=== PATIENT | female | born 1940 | race Caucasian/White ===

== ENCOUNTER → 2016-08-17 | Outpatient (CLI) | payer MEDICARE ==
[~2016-08-17] MED LIST: REGADENOSON 0.4 MG/5 ML SYRINGE ONE
== END | disposition home or self-care (01) ==
LOC: CFH 06:34
PROVIDERS: ATTEND Internal Medicine Cardiovascular Disease
DX: I08.3 Combined rheumatic disorders of mitral, aortic and tricuspid valves (principal); I10 Essential (primary) hypertension; R07.9 Chest pain, unspecified; I49.3 Ventricular premature depolarization
CPT/HCPCS: 78452; 93017; 93306; A9502; J2785

== ENCOUNTER → 2016-08-28 | Outpatient (CLI) | payer MEDICARE ==
[~2016-08-28] MED LIST changes: +OMNIPAQUE 350 MG/ML, 100ML BOTTLE ONE; -REGADENOSON 0.4 MG/5 ML SYRINGE ONE
== END | disposition home or self-care (01) ==
LOC: RAD 12:35
PROVIDERS: ATTEND Family Medicine
DX: K57.92 Diverticulitis of intestine, part unspecified, without perforation or abscess without bleeding (principal); K44.9 Diaphragmatic hernia without obstruction or gangrene; N94.89 Other specified conditions associated with female genital organs and menstrual cycle; I70.0 Atherosclerosis of aorta
CPT/HCPCS: 74177; Q9967

== ENCOUNTER → 2017-08-20 | Outpatient (CLI) | payer MEDICARE | END | disposition home or self-care (01) | LOC: RAD 11:31 | PROVIDERS: ATTEND Internal Medicine | DX: J06.9 Acute upper respiratory infection, unspecified (principal) | CPT/HCPCS: 71046 ==

== ENCOUNTER → 2017-10-24 | Outpatient (CLI) | payer MEDICARE ==
[~2017-10-24] MED LIST changes: +LIDOCAINE-MPF 1%, 2ML ONE; -OMNIPAQUE 350 MG/ML, 100ML BOTTLE ONE
== END | disposition home or self-care (01) ==
LOC: RAD 13:10
PROVIDERS: ATTEND Otolaryngology
DX: E04.2 Nontoxic multinodular goiter (principal)
CPT/HCPCS: 10022; 76942; 88112; 88172; 88173; J3490

== ENCOUNTER → 2018-04-08 | Outpatient (CLI) | payer MEDICARE | END | disposition home or self-care (01) | LOC: CFH 10:07 | PROVIDERS: ATTEND Otolaryngology | DX: E04.9 Nontoxic goiter, unspecified (principal) | CPT/HCPCS: 76536 ==

== ENCOUNTER 2018-06-06 08:34 | Outpatient (CLI) | payer MEDICARE ==
[2018-06-06] MEDS ORDERED: LIDOCAINE-MPF 1%, 5ML ONE (08:53)
== END 2018-06-06 23:59 | disposition home or self-care (01) ==
LOC: RAD 08:34
PROVIDERS: ATTEND Surgery
DX: D34 Benign neoplasm of thyroid gland (principal)
CPT/HCPCS: 10005; 76942; 88172; 88173

== ENCOUNTER → 2018-08-01 | Outpatient (CLI) | payer MEDICARE ==
[~2018-08-01] MED LIST changes: +COQ10 PO; +LEVO125T PO; -LIDOCAINE-MPF 1%, 2ML ONE; +LOSA100T14 PO; +PRAV20TA2 PO; +[UNRECOGNIZED DRUG - OTHER] PO
[2018-08-01 10:01] LABS: ALBUMIN 4.2 g/dL (3.4-5.0); ANION GAP 5 mmol/L (5-15); CALCIUM 9.6 mg/dL (8.5-10.1); CHLORIDE 107 mmol/L (98-107)
[2018-08-01 10:05] LABS: ALANINE AMINOTRANSFERASE 22 U/L (12-78); ALKALINE PHOSPHATASE 64 U/L (45-117); BILIRUBIN,TOTAL 0.6 mg/dL (0.2-1.0); CREATININE 0.92 mg/dL (0.55-1.02); TOTAL PROTEIN 8.5 g/dL (6.4-8.2)
== END | disposition home or self-care (01) ==
LOC: STAR 08:28
PROVIDERS: ATTEND Surgery
DX: Z01.818 Encounter for other preprocedural examination (principal)
CPT/HCPCS: 36415; 80053; 93005

== ENCOUNTER 2018-08-05 07:52 | Inpatient (IN) | payer MEDICARE ==
[~2018-08-05] VITALS: Ht 172.7 cm; Wt 85.0 kg
[~2018-08-05 07:52] MED LIST changes: -LEVO125T PO
[2018-08-05] MEDS ORDERED: LACTATED RINGERS 1,000 ML IV SCH (08:14)
[2018-08-05] MEDS ORDERED: BUPIVACAINE/PF-EPI 0.5% 1:200K ONE (09:21)
[2018-08-05] MEDS ORDERED: HYDROmorphone 2 MG/ML, 1ML IVPush PRN (10:00)
[2018-08-05] MEDS ORDERED: hydrALAzine 20 MG/ML, 1ML IV PRN (10:00)
[2018-08-05] MEDS ORDERED: MEPERIDINE/PF 25MG/0.5ML IVPush PRN (10:00)
[2018-08-05] MEDS ORDERED: PROMETHAZINE 12.5 MG SUPP PR PRN (10:00)
[2018-08-05] MEDS ORDERED: MIDAZOLAM 1 MG/ML, 2ML IV PRN (10:00)
[2018-08-05] MEDS ORDERED: HALOPERIDOL 5 MG/ML IV PRN (10:00)
[2018-08-05] MEDS ORDERED: DIAZEPAM 5 MG/ML, 2ML IVPush PRN (10:00)
[2018-08-05] MEDS ORDERED: LABETALOL 5MG/ML, 20ML IV PRN (10:00)
[2018-08-05] MEDS ORDERED: EPHEDRINE 50 MG/ML, 1ML IVPush PRN (10:00)
[2018-08-05] MEDS ORDERED: ALBUTEROL SULFATE 2.5 MG/3 ML NPPB PRN (10:00)
[2018-08-05] MEDS ORDERED: ONDANSETRON 2MG/ML, 2ML IV PRN (10:00)
[2018-08-05] MEDS ORDERED: ACETAMINOPHEN 325 MG TABLET PO PRN ×4 (10:00→18:30)
[2018-08-05] MEDS ORDERED: PROMETHAZINE 25 MG/ML, 1ML IV PRN (10:00)
[2018-08-05] MEDS ORDERED: ONDANSETRON ODT 8 MG PO PRN (10:00)
[2018-08-05] MEDS ORDERED: FENTANYL PF 100 MCG/2ML ONE (11:49)
[2018-08-05] MEDS ORDERED: ACETAMINOPHEN 650 MG/20.3 ML UDC ONE (11:49)
[2018-08-05] MEDS: FENTANYL PF 100 MCG/2ML IV PRN ×4 (11:52→12:31)
[2018-08-05] MEDS ORDERED: hydrALAzine 20 MG/ML, 1ML ONE (11:53)
[2018-08-05 13:00] VITALS: BP 134/72
[2018-08-05] MEDS: LACTOBACILLUS CHEW TABLET PO SCH (13:15)
[2018-08-05 13:21] VITALS: BP 122/61
[2018-08-05] MEDS ORDERED: ACETAMINOPHEN 650 MG SUPP PR PRN (13:30)
[2018-08-05] MEDS ORDERED: [UNRECOGNIZED DRUG - REMARK] XX PRN (13:30)
[2018-08-05] MEDS ORDERED: LORazepam 1MG TABLET PO PRN (13:30)
[2018-08-05] MEDS ORDERED: LORazepam 2 MG/ML, 1ML IV PRN (13:30)
[2018-08-05] MEDS ORDERED: DIPHENHYDRAMINE 25 MG CAPSULE PO PRN (13:30)
[2018-08-05] MEDS ORDERED: DIPHENHYDRAMINE 50 MG/ML, 1ML IV PRN (13:30)
[2018-08-05] MEDS: LACTATED RINGERS 1,000 ML IV SCH (15:00)
[2018-08-05 18:10] LABS: ALBUMIN 4.1 g/dL (3.4-5.0); CALCIUM 8.9 mg/dL (8.5-10.1)
[2018-08-05 18:41] VITALS: BP 140/79
[2018-08-05] MEDS ORDERED: PRAVASTATIN 20 MG TABLET PO SCH (21:00)
[2018-08-05 23:15] VITALS: BP 135/74
[2018-08-06 00:40] LABS: ALBUMIN 3.6 g/dL (3.4-5.0); CALCIUM 8.7 mg/dL (8.5-10.1)
[2018-08-06] MEDS: LACTATED RINGERS 1,000 ML IV SCH (02:50)
[2018-08-06 03:20] VITALS: BP 110/69
[2018-08-06 07:10] LABS: ALBUMIN 3.5 g/dL (3.4-5.0); CALCIUM 8.6 mg/dL (8.5-10.1)
[2018-08-06 07:15] VITALS: BP 116/58
[2018-08-06] MEDS: LACTOBACILLUS CHEW TABLET PO SCH (08:50)
[2018-08-06 08:57] VITALS: BP 105/59
[2018-08-06] MEDS ORDERED: LOSARTAN 50MG TABLET PO SCH (09:00)
[2018-08-06] MEDS ORDERED: LEVO125T PO (09:01)
== END 2018-08-06 10:59 | disposition home or self-care (01) | DRG 627 ==
LOC: OUT 07:52 → 4NOR 12:57 → OUT 13:25 → DCLOUNGE 08-06 10:39
PROVIDERS: ADMIT Surgery; ATTEND Surgery
PROC: 0GTJ0ZZ Resection of Thyroid Gland Isthmus, Open Approach (ICD-10-PCS; 2018-08-05)
PROC: 4A11X4G Monitoring of Peripheral Nervous Electrical Activity, Intraoperative, External Approach (ICD-10-PCS; 2018-08-05)
PROC: 0GTK0ZZ Resection of Thyroid Gland, Open Approach (ICD-10-PCS; principal; 2018-08-05 10:15)
DX: E04.2 Nontoxic multinodular goiter (principal); I10 Essential (primary) hypertension; E78.5 Hyperlipidemia, unspecified; Z87.891 Personal history of nicotine dependence; Z82.49 Family history of ischemic heart disease and other diseases of the circulatory system; Z83.3 Family history of diabetes mellitus
CPT/HCPCS: 36415; 82040; 82310; 88307; G0378; J0690; J1100; J2250; J2310; J2405; J2704; J3010; C1760; J0330; J0360; J7120

== ENCOUNTER 2018-10-16 06:55 | Outpatient (CLI) | payer MEDICARE ==
[~2018-10-16 06:55] MED LIST changes: +LEVO125T PO
[2018-10-16] MEDS ORDERED: REGADENOSON 0.4 MG/5 ML SYRINGE ONE (07:27)
== END 2018-10-16 23:59 | disposition home or self-care (01) ==
LOC: CFH 06:55
PROVIDERS: ATTEND Internal Medicine Cardiovascular Disease
DX: I08.8 Other rheumatic multiple valve diseases (principal); E78.5 Hyperlipidemia, unspecified; I10 Essential (primary) hypertension
CPT/HCPCS: 0399T; 78452; 93017; 93306; A9502; J2785

== ENCOUNTER → 2019-04-10 | Outpatient (CLI) | payer MEDICARE ==
[~2019-04-10] MED LIST changes: +ATOR40TA78 PO; +METO25TA91 PO
[2019-04-10 15:50] LABS: BASOPHILS # (AUTO) 0.03 x10^3/uL (0-0.1); BASOPHILS % (AUTO) 0 % (0-1); EOSINOPHILS # (AUTO) 0.16 x10^3/uL (0-0.4); EOSINOPHILS % (AUTO) 2 % (1-7); LYMPHOCYTES # (AUTO) 3.05 x10^3/uL (1-3.4); LYMPHOCYTES % (AUTO) 33 % (22-44); MD NO; MEAN CORPUSCULAR HEMOGLOBIN 29.3 pg (27.0-34.8); MEAN CORPUSCULAR HGB CONC 32.7 g/dL (32.4-35.8); MEAN CORPUSCULAR VOLUME 89.4 fL (80-100); MEAN PLATELET VOLUME 9.8 fL (7.4-10.4); MONOCYTES # (AUTO) 0.59 x10^3/uL (0.2-0.8); MONOCYTES % (AUTO) 6 % (2-9); NEUTROPHILS # (AUTO) 5.37 x10^3/uL (1.8-6.8); NEUTROPHILS % (AUTO) 58 % (42-75); PLATELET COUNT 239 x10^3/uL (130-400); RED BLOOD COUNT 4.86 x10^6/uL (3.82-5.3); RED CELL DISTRIBUTION WIDTH 13.3 % (9.6-15.2)
[2019-04-10 16:29] LABS: ANION GAP 5 mmol/L (5-15); CALCIUM 8.9 mg/dL (8.5-10.1); CHLORIDE 108 mmol/L (98-107); CREATININE 0.83 mg/dL (0.55-1.02)
== END | disposition home or self-care (01) ==
LOC: CFH 13:51
PROVIDERS: ATTEND Internal Medicine Cardiovascular Disease
DX: I35.1 Nonrheumatic aortic (valve) insufficiency (principal); I25.10 Atherosclerotic heart disease of native coronary artery without angina pectoris; E78.00 Pure hypercholesterolemia, unspecified; I10 Essential (primary) hypertension; R00.2 Palpitations
CPT/HCPCS: 36415; 80048; 85025

== ENCOUNTER 2019-04-14 07:55 | Day surgery (SDC) | payer MEDICARE ==
[~2019-04-14] VITALS: Ht 172.7 cm; Wt 84.1 kg
[~2019-04-14 07:55] MED LIST changes: -ATOR40TA78 PO; -METO25TA91 PO
[2019-04-14] MEDS ORDERED: SODIUM CHLORIDE 0.9% 1,000 ML IV SCH ×2 (08:22→10:32)
[2019-04-14 08:24] VITALS: BP 155/79
[2019-04-14] MEDS ORDERED: ASPIRIN 325 MG TABLET EC PO ONE (08:30)
[2019-04-14] MEDS ORDERED: ATOR40TA78 PO (08:37)
[2019-04-14] MEDS ORDERED: METO25TA91 PO (08:37)
[2019-04-14] MEDS ORDERED: ASPIRIN 325 MG TABLET EC ONE (08:42)
[2019-04-14] MEDS ORDERED: FENTANYL PF 100 MCG/2ML ONE (09:27)
[2019-04-14] MEDS ORDERED: MIDAZOLAM 1 MG/ML, 5ML ONE (09:27)
[2019-04-14] MEDS ORDERED: HEPARIN 1,000 UNITS/ML, 10ML ONE (09:28)
[2019-04-14] MEDS ORDERED: TICAGRELOR 90 MG TABLET ONE (09:28)
[2019-04-14] MEDS ORDERED: VERAPAMIL 2.5 MG/ML, 2ML ONE (09:28)
[2019-04-14] MEDS ORDERED: BIVALIRUDIN 250 MG ONE (09:28)
[2019-04-14] MEDS ORDERED: NITROGLYCERIN 5 MG/ML, 10ML ONE (09:28)
[2019-04-14] MEDS ORDERED: LIDOCAINE-MPF 1%, 5ML ONE (09:28)
== END 2019-04-14 12:37 | disposition home or self-care (01) ==
LOC: CACL 07:55
PROVIDERS: ATTEND Internal Medicine Cardiovascular Disease
DX: I25.110 Atherosclerotic heart disease of native coronary artery with unstable angina pectoris (principal); I25.83 Coronary atherosclerosis due to lipid rich plaque; I35.1 Nonrheumatic aortic (valve) insufficiency; I10 Essential (primary) hypertension; E78.5 Hyperlipidemia, unspecified; Z79.890 Hormone replacement therapy; Z79.899 Other long term (current) drug therapy; Z87.891 Personal history of nicotine dependence; Z88.5 Allergy status to narcotic agent; Z88.8 Allergy status to other drugs, medicaments and biological substances
CPT/HCPCS: 93458; 99156; 99157; C1769; C1894; J0583; J1644; J2250; J3010; J7030; Q9967

== ENCOUNTER → 2019-06-11 | Outpatient (CLI) | payer MEDICARE ==
[~2019-06-11] MED LIST changes: +ATOR40TA78 PO; +METO25TA91 PO
== END | disposition home or self-care (01) ==
LOC: CFH 14:24
PROVIDERS: ATTEND Internal Medicine Cardiovascular Disease
DX: R07.89 Other chest pain (principal); R06.02 Shortness of breath; I11.9 Hypertensive heart disease without heart failure; I25.10 Atherosclerotic heart disease of native coronary artery without angina pectoris; E78.00 Pure hypercholesterolemia, unspecified; E03.9 Hypothyroidism, unspecified
CPT/HCPCS: 71046